=== PATIENT | female | born 1980 ===

== ENCOUNTER 2018-06-10 09:14 | Outpatient (CLI) | payer BC ==
[2018-06-10 11:47] LABS: CHOL/HDL RATIO 3.2 (<4.4); CHOLESTEROL 178 mg/dL; GLUCOSE 89 mg/dL (70-100); HDL CHOLESTEROL 55 mg/dL; LDL CHOLESTEROL,CALCULATED 90 mg/dL; LDL/HDL RATIO 1.6 (<4.4); VLDL CHOLESTEROL 33 mg/dL
[2018-06-10 11:51] LABS: HB2 TOTAL 13.7 g/dL; HEMOGLOBIN A1C 0.42 g/dL
--- NOTE | 2018-06-10 14:42 | Mammography Report ---
Reason: BILAT DIAG wTOMO /RIGHT AXILLA LUMP Procedure Date: 06/10/2018 Accession Number: [id number] / [id number] Procedure: [facility] - Diagnostic Bilat 3D [place] CPT Code: 66581 FULL RESULT: EXAM: Diagnostic Bilat 3D [place] DATE: 06/10/2018 10:04 AM CLINICAL HISTORY: 37-year-old female presents with a right breast palpable lump of 3 months duration with mild tenderness to touch. TECHNIQUE: Bilateral CC and MLO views were obtained with 2-D and 3-D technique. Right spot LM and cc views were also obtained. Focused breast ultrasound was performed. COMPARISON: None FINDINGS: The breasts demonstrate heterogeneously dense fibroglandular parenchyma bilaterally. The area marked as palpable with a BB is mammographically and negative, no correlate. Focused breast ultrasound reveals a normal-appearing lymph node with preserved architecture to correspond to the palpable finding. No suspicious mass, architectural distortion or calcification is identified in either breast. IMPRESSION: Benign findings RECOMMENDATION: Recommend routine annual Screening mammography unless otherwise clinically indicated. BIRADS CATEGORY 2: Benign findings STANDARD QUALIFYING STATEMENTS: 1. This examination was not reviewed with the aid of Computer-Aided Detection (CAD). 2. A negative or benign imaging report should not delay biopsy if clinically suspicious findings are present. Consider surgical consultation if warrented. More than 5% of cancers are not identified by imaging. 3. Dense breasts may obscure an underlying neoplasm. 4. This examination was reviewed with the aid of 3D imaging (tomography).
== END 2018-06-10 09:15 | disposition home or self-care (01) ==
LOC: DI 09:14
PROVIDERS: ATTEND Registered Nurse
DX: Z01.411 Encounter for gynecological examination (general) (routine) with abnormal findings (principal); N63.11 Unspecified lump in the right breast, upper outer quadrant
CPT/HCPCS: 36415; 76642; 77062; 80061; 82947; 83036; 83721; 84443

== ENCOUNTER 2018-06-11 18:16 | Outpatient (CLI) | payer BC ==
--- NOTE | 2018-06-12 16:17 | Ultrasound Report ---
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 CLINICAL HISTORY: Irregular menstrual period. COMPARISON: None. TECHNIQUE: Realtime transabdominal pelvic scan performed to identify the uterus and adnexa and as an overview of other pelvic structures, followed by transvaginal scan to provide greater detail of the uterus and adnexa, with static image documentation. FINDINGS: Uterus: 7.5 x 4.6 x 3.1 cm, volume 56 cc. Anteverted position. Normal overall size and echotexture. Masses: Multiple shadowing hyperechoic foci within the myometrium likely represent small fibroids with calcification. Question an ill-defined myometrial fundal fibroid with submucosal component measures 1.7 x 1.5 cm with perceived mass-effect on the fundal endometrium. Endometrium: 6 mm. Displaced by the posterior fundal fibroid. Cervix: Unremarkable. Right Ovary: 1.9 x 1.1 x 1.4 cm, volume 1.5 cc. Normal echotexture and blood flow. Left Ovary: 2.4 x 1.9 x 1.3 cm, volume 3.1 cc. Normal echotexture and blood flow. Free Fluid: None. Other: None. IMPRESSION: Suspect fibroid with submucosal component in the fundal region exerting as described. Given the clinical presentation of irregular menstrual cycle, the patient could return to the ultrasound department for additional imaging by the radiologist to further define/confirm the suspected finding including detailed color Doppler without additional charge to the patient. An addendum to this report could be issued at that time. MARTHAA
== END 2018-06-11 18:17 | disposition home or self-care (01) ==
LOC: DI 18:16
PROVIDERS: ATTEND Registered Nurse
DX: Z01.411 Encounter for gynecological examination (general) (routine) with abnormal findings (principal)
CPT/HCPCS: 76830; 76856

== ENCOUNTER 2019-10-05 10:00 | Outpatient (CLI) | payer BC ==
--- NOTE | 2019-10-06 13:25 | Mammography Report ---
Reason: ROUTINE MAMMO Procedure Date: 10/05/2019 Accession Number: [id number] / [id number] Procedure: [facility] - Screening Mammo Dig Bilat CPT Code: Final Report FULL RESULT: EXAM: Screening Mammo Dig Bilat DATE: 10/05/2019 10:21 AM CLINICAL HISTORY: Routine screening TECHNIQUE: (B) - Bilateral CC and MLO views were obtained. COMPARISON: 06/10/2018 PARENCHYMAL PATTERN: (D) - The breasts demonstrate heterogeneously dense fibroglandular parenchyma bilaterally. FINDINGS: No interval change. There are no suspicious masses, calcifications, or areas of distortion. IMPRESSION: Negative examination. BI-RADS category 1. RECOMMENDATION: (ANNUAL) - Recommend routine annual screening mammography. BI-RADS CATEGORY: (1) - Negative. STANDARD QUALIFYING STATEMENTS: 1. This examination was not reviewed with the aid of Computer-Aided Detection (CAD). 2. A negative or benign imaging report should not preclude biopsy if clinically suspicious findings are present. 3. Dense breasts may obscure an underlying neoplasm. 4. This examination was reviewed without the aid of 3D breast imaging (tomosynthesis).
== END 2019-10-05 10:01 | disposition home or self-care (01) ==
LOC: DI.N 10:00
DX: Z12.31 Encounter for screening mammogram for malignant neoplasm of breast (principal)
CPT/HCPCS: 77067

== ENCOUNTER 2019-10-15 08:59 | Outpatient (CLI) | payer BC ==
[2019-10-15 12:40] LABS: CHOL/HDL RATIO 4.6 (<4.4); CHOLESTEROL 208 mg/dL; HDL CHOLESTEROL 45 mg/dL; LDL CHOLESTEROL,CALCULATED 135 mg/dL; VLDL CHOLESTEROL 28 mg/dL
== END 2019-10-15 23:59 | disposition home or self-care (01) ==
LOC: LAB.N 08:59
PROVIDERS: ATTEND Nurse Practitioner Obstetrics & Gynecology
DX: Z01.419 Encounter for gynecological examination (general) (routine) without abnormal findings (principal)
CPT/HCPCS: 36415; 80061; 83721; 84443